=== PATIENT | male | born 1990 | race Caucasian/White ===

== ENCOUNTER 2017-08-02 17:10 | Emergency (ER) | END 2017-08-02 19:42 | disposition home or self-care (01) ==

== ENCOUNTER 2017-08-13 08:13 | Emergency (ER) | END 2017-08-13 10:00 | disposition home or self-care (01) ==

== ENCOUNTER 2017-08-19 07:58 | Emergency (ER) | END 2017-08-19 09:29 | disposition home or self-care (01) ==

== ENCOUNTER 2018-04-26 16:38 | Emergency (ER) | payer OTHER ==
[~2018-04-26] VITALS: Ht 180.3 cm; Wt 98.0 kg
[~2018-04-26 16:38] MED LIST: ACET500C5 PO; NAPR-985 PO
[2018-04-26 16:53] VITALS: BP 126/79; PULSE 97; RESP 18; Ht 180.3 cm; Wt 98.0 kg
--- NOTE | 2018-04-26 16:55 | ERD ---
ER Documentation Chief Complaint Chief Complaint pt is bib RA 40 from home with c/o seizure , hx same BS=59 in field, HPI This is a 27-year-old male with known seizure disorder who takes Keppra 750 mg twice daily. The patient had a seizure today that was a generalized tonic- clonic seizure without head trauma. The patient returned to baseline. Minimal postictal state. Patient admits to missing last night and this morning's dose of his Keppra. Last seizure episode was a few months ago. He does follow-up with a neurologist and admits to prior workup including normal CT and MR of the brain ROS All systems reviewed and are negative except as per history of present illness. Medications Home Meds Active Scripts Levetiracetam* (Levetiracetam*) 750 Mg Tablet, 750 MG PO BID, #60 TAB Prov:JACK KWONG MD 04/26/18 Discontinued Scripts Acetaminophen* (Tylophen*) 500 Mg Capsule, 1 CAP PO Q6H PRN for PAIN AND OR ELEVATED TEMP, #30 CAP Prov:NELIA WILSON PA-C 08/02/17 Naproxen* (Naprosyn*) 500 Mg Tablet, 500 MG PO BID PRN for PAIN AND/OR INFLAMMATION, #30 TAB Prov:NELIA WILSON PA-C 08/02/17 Allergies Allergies: Coded Allergies: No Known Allergy (Unverified , 04/26/18) PMhx/Soc Seizure disorder History of Surgery: No Anesthesia Reaction: No Hx Neurological Disorder: Yes (seizure disorder) Hx Respiratory Disorders: No Hx Cardiac Disorders: No Hx Psychiatric Problems: No Hx Miscellaneous Medical Probl: No Hx Alcohol Use: No Hx Substance Use: No Hx Tobacco Use: No FmHx Family History: No diabetes Physical Exam Vitals Vital Signs Date Temp Pulse Resp B/P (MAP) Pulse Ox O2 O2 Flow FiO2 Time Delivery Rate 04/26/18 98.3 97 18 126/79 100 16:53 (95) Physical Exam GENERAL: Well-developed, well-nourished, well-hydrated, in no apparent distress, looks nontoxic in appearance HEENT: Moist mucous membranes, pink conjunctiva, no cervical spine tenderness or step-off deformities, no goiter, no jaundice or icterus, extraocular movements intact without pain. No submandibular induration, and no pharyngeal erythema NEURO: Alert and oriented 3, cranial nerves II through XII intact bilaterally, pupils equal round reactive to light, no focal deficits or facial asymmetry, sensation intact distally Strength 5/5 in upper and lower extremities bilaterally CARDIAC: Regular rate and rhythm, no murmurs rubs or gallops LUNGS: Clear bilaterally no wheezing crackles or stridor ABDOMEN: Soft nontender, no guarding, no rigidity, no rebound, no psoas sign no obturator sign. Normoactive bowel sounds SKIN: Warm and dry to touch, no abrasions, contusions, or hematomas, no lacerations, no ecchymosis, no target lesions, and without ulcers EXTREMITIES: No clubbing cyanosis or edema, calves are bilaterally symmetrical, no Homans sign, no popliteal cord sign. Distal pulses equal and bilateral PSYCH: Normal affect without agitation or irritability Result Diagram: 04/26/18 1655 04/26/18 1655 Results 24 hrs Laboratory Tests Test 04/26/18 16:55 White Blood Count 6.8 10^3/ul Red Blood Count 4.81 10^6/ul Hemoglobin 15.7 g/dl Hematocrit 43.0 % Mean Corpuscular Volume 89.4 fl Mean Corpuscular Hemoglobin 32.6 pg Mean Corpuscular Hemoglobin Concent 36.5 g/dl Red Cell Distribution Width 14.6 % Platelet Count 167 10^3/UL Mean Platelet Volume 12.2 fl Immature Granulocytes % 0.300 % Neutrophils % 53.3 % Lymphocytes % 37.0 % Monocytes % 7.8 % Eosinophils % 0.9 % Basophils % 0.7 % Nucleated Red Blood Cells % 0.6 /100WBC Immature Granulocytes # 0.020 10^3/ul Neutrophils # 3.6 10^3/ul Lymphocytes # 2.5 10^3/ul Monocytes # 0.5 10^3/ul Eosinophils # 0.1 10^3/ul Basophils # 0.1 10^3/ul Nucleated Red Blood Cells # 0.0 10^3/ul Sodium Level 143 mmol/L Potassium Level 3.9 mmol/L Chloride Level 107 mmol/L Carbon Dioxide Level 20 mmol/L Anion Gap 16 Blood Urea Nitrogen 14 mg/dl Creatinine 0.76 mg/dl Est Glomerular Filtrat Rate mL/min > 60 mL/min Glucose Level 75 mg/dl Calcium Level 7.7 mg/dl Total Bilirubin 0.3 mg/dl Direct Bilirubin 0.00 mg/dl Indirect Bilirubin 0.3 mg/dl Aspartate Amino Transf (AST/SGOT) 29 IU/L Alanine Aminotransferase (ALT/SGPT) 30 IU/L Alkaline Phosphatase 55 IU/L Total Protein 6.2 g/dl Albumin 3.9 g/dl Globulin 2.30 g/dl Albumin/Globulin Ratio 1.69 Lipase 169 U/L Current Medications Medications Dose Sig/Vianca Start Time Status Last (Trade) Ordered Route PRN Stop Time Admin Dose Reason Admin 100 ml @ ONCE ONCE 04/26/18 DC 04/26/18 Levetiracetam 400 mls/hr IVPB 17:00 04/26/18 17:12 17:14 Sodium 1,000 ml @ Q1H STAT 04/26/18 DC 04/26/18 Chloride 1,000 mls/hr IV 16:58 04/26/18 17:07 17:57 Procedures/MDM IV line was established patient was placed on crew[employer] battle [employer] rhythm strip revealed a sinus rhythm at about 80 bpm with upright P and T waves. Patient was afebrile CBC and electrolytes were normal. Liver function tests normal I administered 1 L normal saline IV and Keppra 1 g IV x1. Differential diagnoses considered, included but not limited to acute coronary syndrome, pulmonary embolism, aortic dissection, abdominal aortic aneurysm, sepsis, stroke, meningitis, encephalitis, pneumonia, appendicitis, cholecystitis, bowel obstruction, pyelonephritis, nephrolithiasis, cystitis, as well as metabolic, hematologic, and electrolyte abnormalities. As well as abscess, cellulitis, fractures, and dislocations. Patient feels much better at this time, and vital signs are normal, symptoms have improved. I did give strict instructions to return to the ED if symptoms continue or worsen, patient will otherwise follow-up with primary care physician. Patient understood instructions and agreed to plan. Disclaimer: Inadvertent spelling and grammatical errors are likely due to EHR/dictation software use and do not reflect on the overall quality of patient care. Also, please note that the electronic time recorded on this note does not necessarily reflect the actual time of the patient encounter. Departure Diagnosis: Primary Impression: Seizure disorder Condition: JACK Perkins MD Apr 26, 2018 16:55
[2018-04-26] MEDS ORDERED: SOD CHLORIDE 0.9% 1,000 ML IV STA (16:58)
[2018-04-26] MEDS ORDERED: LEVETIRACETAM 1000 MG (PMX) 100 ML IVPB ONE (17:00)
[2018-04-26] MEDS ORDERED: LEVE750T8 PO (17:02)
== END 2018-04-26 18:06 | disposition home or self-care (01) ==
LOC: E/R 16:38
DX: G40.909 Epilepsy, unspecified, not intractable, without status epilepticus (principal)
CPT/HCPCS: 36415; 80053; 83690; 85025; 96374; J1953; J7030; Z7502; Z7610

== ENCOUNTER 2018-09-05 17:46 | Emergency (ER) | payer SELFPAY ==
[~2018-09-05] VITALS: Ht 188 cm; Wt 97.6 kg
[~2018-09-05 17:46] MED LIST changes: -ACET500C5 PO; +LEVE750T8 PO; -NAPR-985 PO
[2018-09-05 18:43] VITALS: BP 120/59; PULSE 67; RESP 18; Ht 188 cm; Wt 97.6 kg
== END 2018-09-05 19:36 | disposition left against medical advice (07) ==
LOC: E/R 17:46
DX: Z53.21 Procedure and treatment not carried out due to patient leaving prior to being seen by health care provider (principal)

== ENCOUNTER 2019-02-14 19:43 | Emergency (ER) | payer OTHER ==
[~2019-02-14] VITALS: Ht 188 cm; Wt 102.9 kg
[~2019-02-14 19:43] MED LIST changes: +IBUP-1542 PO
[2019-02-14 20:02] VITALS: BP 135/80; PULSE 60; RESP 16; Ht 188 cm; Wt 102.9 kg
== END 2019-02-14 22:54 | disposition home or self-care (01) ==
LOC: FTE 19:43
DX: S90.211A Contusion of right great toe with damage to nail, initial encounter (principal); X58.XXXA Exposure to other specified factors, initial encounter; Y92.310 Basketball court as the place of occurrence of the external cause
CPT/HCPCS: 11740; 73660; Z7502